=== PATIENT | female | born 1950 | race Caucasian/White ===

== ENCOUNTER 2023-09-20 23:29 | Observation (INO) | payer MEDICARE, OTHER, SELFPAY ==
[2023-09-20 23:29] VITALS: BP 150/96; PULSE 87; RESP 18; TEMP 36.8; O2SAT 95; BMI 25.3
--- NOTE | 2023-09-20 23:30 | HMH.EDGENADL ---
Discharge Plan Disposition Patient Disposition: Home, Self-Care Clinical Impressions Clinical Impression: Fracture, patella Discharge ED Provider: Black Thomas Adult HPI General Chief complaint: Fall Stated complaint: Fall Time Seen by Provider: 09/20/23 23:30 History of Present Illness HPI narrative: 72-year-old female presents for focal left knee pain after a fall from standing. She tripped on her cat's cardboard box and fell directly onto a concrete floor. She denies any other pain or injury besides the left knee. Any numbness or tingling. Related Data Allergies Allergy/AdvReac Type Severity Reaction Status Date / Time No Known Allergies Allergy Verified 09/21/23 01:54 [facility] Disclaimer: The information contained in this section may have been updated after the patient was seen, as this information can be updated by other users. Social History Smoking Status: Former smoker alcohol intake: never current occupational status: retired Travel in the last 8 weeks: None ROS Obtained: Yes All systems reviewed & no additional complaints except as documented Physical Exam General General appearance: alert and in no apparent distress Head Head exam: atraumatic and normocephalic Eye Eye exam: Present normal appearance, PERRL and EOMI ENT ENT exam: Present normal oropharynx and normal external ear exam Neck Neck exam: Present normal inspection and full ROM Chest Chest inspection: Present normal inspection and symmetric chest wall rise; Absent tenderness Respiratory Respiratory exam: Present normal lung sounds bilaterally; Absent respiratory distress Cardiovascular Cardiovascular exam: Present regular rate and normal rhythm Abdominal Exam Abdominal exam: Present soft; Absent distention, tenderness or guarding Extremities Exam Extremities exam: Present other (Focal left knee hematoma and swelling. Patient unable to straighten left lower leg against gravity. Otherwise normal extremity exam. No pelvic tenderness.) Back Exam Back exam: Present normal inspection; Absent tenderness Neurological Exam Neurological exam: Present alert and oriented X3; Absent motor sensory deficit Psychiatric Psychiatric exam: Present normal affect and normal mood Skin Skin exam: Present warm, dry and normal color Lymphatic Lymphatic Findings: no adenopathy Medical Decision Making Medical Records Medical records reviewed: Yes I reviewed the patient's medical records. Reginaldo Inquiry Pt receiving controlled substance: No Reginaldo was queried for this patient: No Vital Signs: 09/20/23 23:29 Temperature 98.2 F Temperature Source Oral Pulse Rate [Right] 87 Respiratory Rate 18 Blood Pressure [Right Arm] 150/96 H Blood Pressure Mean [Right Arm] 114 Blood Pressure Source [Right Arm] Automatic Cuff 02 Sat by Pulse Oximetry 95 Oxygen Delivery Method Room Air Lab Data Lab results reviewed: Yes I reviewed the patient's lab results. Orders (Tests/Meds): ORDERS Category Date Time Status Knee XR left 3 views [XR knee LT 3V] Stat Exams 09/20/23 23:48 Completed Medical Decision Narrative: 72-year-old female with history of fatty liver, cardiovascular disease, etc. presents for focal left knee pain after a mechanical fall from standing onto her left knee. History was obtained via interactive discussion with patient. On arrival, patient is [afebrile, hemodynamically stable, satting appropriately, alert, oriented x4, GCS 15], moving all extremities spontaneously. Full physical exam performed and significant for focal left knee Tenderness and swelling. Differential includes but is not limited to fracture, dislocation, neurovascular/ligamentous/tendon injury.. Patient declines any pain medication. Workup initiated including radiographs of the left knee and patella.. On re-evaluation, patient [remains afebrile, HD stable.] Imaging independently interpreted by me and significant for comminuted displaced patellar fracture. No evidence of tibial plateau fracture or knee dislocation. See radiology read for full review of final results. Given patient history, exam and workup, patient's presentation most likely represents acute displaced patellar fracture. This will require operative fixation but not emergently. We placed patient in a knee immobilizer and attempted to ambulate, but she was unable to safely do so. She lives at home alone and does not have any assistance at this time. Given this, patient requires admission for PT OT and potential rehab placement given immobility in the setting of acute fracture. She will require outpatient orthopedic surgery follow-up upon discharge. Procedures Risk/Benefits of Procedure(s) Were Explained: Yes Critical Care Critical Care Time Critical Care Time: No
--- NOTE | 2023-09-20 23:48 | XR_ITS ---
PROCEDURE INFORMATION: Exam: XR Left Knee Exam date and time: 09/20/2023 11:48 PM Age: 72 years old Clinical indication: Injury or trauma; Fall; Fracture, traumatic and swelling (edema); Left; Displaced; Patella or knee; Additional info: Fall, left knee pain TECHNIQUE: Imaging protocol: Radiologic exam of the left knee. Views: 3 views. Total images: 3 COMPARISON: No relevant prior studies available. FINDINGS: Bones/joints: Acute comminuted patellar fracture. The superior and lower pole are distracted approximately 16 mm. Associated joint effusion/hemarthrosis. Osteopenia. Mild degenerative change tibiofemoral joint. No concerning bone lesions. Soft tissues: Prepatellar soft tissue swelling. IMPRESSION: Acute comminuted and distracted patellar fracture.
[2023-09-21] VITALS (7 sets, daily range): BP systolic 101–154; BP diastolic 62–86; PULSE 80–94; RESP 16–18; TEMP 36.6–37.2; O2SAT 90–97; BMI 25.4; BMI 56.0
--- NOTE | 2023-09-21 01:55 | PC.NURSE ---
called warehouse handler and notified of admission. pt being admitted for immobility to hospitalist.
--- NOTE | 2023-09-21 02:15 | PC.NURSE ---
report called to Angie CAMPOS
--- NOTE | 2023-09-21 02:38 | EXP.HP ---
History of Present Illness *Admission Date: 09/21/23 *Reason for visit:: L knee pain *History of present illness: Eulogio is a 72-year-old female past medical history significant for hypothyroid, HLD, CAD, fatty liver who presents emergency room tonight with complaints of a mechanical fall onto her left knee. Patient states that she lives in assisted living facility. Was going into her room tonight and unfortunately tripped over a cardboard box. Fell onto a concrete floor onto her left knee and had immediate severe pain to the knee. Denies any LOC, did not strike her head, no neck or back pain. Denies any other issues. Actually just returned from [place] today to have an MRI done of her liver. Denies any cough, fever, chest pain, shortness of breath, abdominal pain, bowel bladder dysfunction. No swelling of legs or feet. No focal neurodeficits noted. Does not take any blood thinners. Denies any tobacco use, alcohol use, illicit drug use. Workup in the ER showed Acute comminuted and distracted left patellar fracture. Patient was unable to ambulate with crutches safely and was deemed to be a significant fall risk. Daughter lives in [place], was unable to come assist her mother home, patient has no other family to assist her at her assisted living facility. Lab work will be drawn upstairs. She will go to the hospital service for a left patella fracture. [facility] Disclaimer: The information contained in this section may have been updated after the patient was seen, as this information can be updated by other users. Medical History (Updated 09/21/23 @ 03:52 by Angie Doran RN) Cataract Sleep apnea Osteoporosis Constipation IBS (irritable bowel syndrome) Breast cancer Surgical History (Updated 09/21/23 @ 03:37 by Angie Doran RN) History of lumpectomy of left breast H/O total hysterectomy Family History (Updated 09/21/23 @ 03:41 by Angie Doran RN) Father Cancer Mother Alzheimer dementia Social History (Updated 09/21/23 @ 03:58 by Angie Doran RN) Smoking Status: Former smoker alcohol intake: never current occupational status: retired Travel in the last 8 weeks: None Review of Systems Review of Systems Review of systems:: pertinent systems reviewed and negative unless documented below *Musculoskeletal Comments: Left knee pain Meds Home Medications and Allergies Home Medications Medication Instructions Recorded Confirmed Type calcium carb,calcium gluconate 500 1 tab PO DAILY 09/21/23 09/21/23 History mg-vit D2 5 mcg (200 unit) tablet calcium polycarbophil 625 mg tablet 312.5 mg PO DAILY 09/21/23 09/21/23 History ezetimibe 10 mg tablet 10 mg PO DAILY 09/21/23 09/21/23 History levothyroxine 50 mcg tablet 50 mcg PO DAILY 09/21/23 09/21/23 History omega-3 acid ethyl esters 1 gram 1 g PO BID 09/21/23 09/21/23 History capsule omeprazole 20 mg capsule,delayed 20 mg PO DAILY 09/21/23 09/21/23 History release paroxetine HCl 20 mg tablet 20 mg PO DAILY 09/21/23 09/21/23 History polyethylene glycol 1 ea miscellaneous DAILY 09/21/23 09/21/23 History New Prescriptions to Start Prescriptions: Allergies Allergy/AdvReac Type Severity Reaction Status Date / Time No Known Allergies Allergy Verified 09/21/23 01:54 Exam Data for Last 24 hours Vital signs and Labs for Last 24 Hours: Temp Pulse Resp BP Pulse Ox O2 Del Method 98.2 F 80 18 130/80 95 Room Air 09/21/23 02:31 09/21/23 02:31 09/21/23 02:31 09/21/23 02:31 09/20/23 23:29 09/21/23 02:31 I & O for Last 24 hours: Intake & Output 09/18/23 09/19/23 09/20/23 09/21/23 23:59 23:59 23:59 23:59 Weight 60.781 kg *Routine HEENT Exam Head: Present normocephalic and atraumatic Eye: Present EOMI and PERRL ENT: Present mucous membranes moist *Routine Neck Exam Neck: Present supple *Routine Respiratory Exam Respiratory: Present CTA bilaterally *Routine Cardiovascular Exam Cardiovascular: Present RRR, Normal S1 and Normal S2 *Routine Abdominal Exam Abdominal: Present soft and normoactive bowel sounds *Routine Rectal Exam Rectal:: deferred *Routine Genitalia Exam Genitalia:: deferred *Routine Extremities Exam Extremities: Present pulses intact and normal capillary refill Comments: Brace noted on left knee, mild edema noted *Routine Skin Exam Skin: Present intact *Routine Neurological Exam Neurological: Present alert and oriented X3 Assessment and Plan *Assessment and plan (1) Hypothyroid: Status: Acute Category: Medical Code(s): E03.9 - Hypothyroidism, unspecified (2) Fracture, patella: Status: Acute Qualifiers: Encounter type: initial encounter Fracture alignment: displaced Fracture type: closed Laterality: right Category: Medical Code(s): S82.009A - Unspecified fracture of unspecified patella, initial encounter for closed fracture (3) HLD (hyperlipidemia): Status: Acute Category: Medical Code(s): E78.5 - Hyperlipidemia, unspecified (4) Fatty liver disease, nonalcoholic: Status: Acute Category: Medical Code(s): K76.0 - Fatty (change of) liver, not elsewhere classified (5) CAD (coronary artery disease): Status: Acute Category: Medical Code(s): I25.10 - Atherosclerotic heart disease of [place] coronary artery without angina pectoris Plan Assessment: This is a 72-year-old female being admitted for a left patella fracture and inability to complete activities of daily eating. On my exam, patient is lying in bed in no acute distress. Reports her knee pain is a 2/10. Plan: Admit to observation-MedSurg Patella fracture -Consult PT, patient had extreme difficulty ambulating with crutches and was a significant fall risk -Pain management as needed -Continue knee brace -Follow-up with orthopedic surgery outpatient HLD -Resume home medications where appropriate Hypothyroid -Continue Synthroid 50 mcg daily DVT prophylaxis: Lovenox CODE STATUS: Full code Surrogate decision maker: Daughter, number unlisted Skin: Low risk Rounded on patient after nurse practitioner. Personally examined and interviewed patient. Agree with exam findings and care plan as documented. Will obtain CT of need to evaluate displacement of patella and extent of ligament injury. Will consider orthopedics consult in the morning pending findings. May need surgical correction. Continue pain control With oxycodone as needed every 6 hours and Toradol every 6 hours.
--- NOTE | 2023-09-21 02:40 | PC.NURSE ---
Patient arrived to floor via stretcher from ED at 02:26.
[2023-09-21 03:19] LABS: Chloride 105 mmol/L (98-107)
[2023-09-21 03:20] LABS: Basophils # 0.1 K/mm3 (0-0.2); Basophils % 0.8 % (0.1-2.0); Eosinophils # 0.1 K/mm3 (0.0-0.4); Eosinophils % 0.9 % (0.1-12.0); Hemoglobin 13.3 g/dL (12.2-16.2); Lymphocytes # 2.6 K/mm3 (0.7-4.5); Lymphocytes % 23.2 % (10-50); Mean Corpuscular HGB Conc 34.2 g/dL (31.8-35.4); Mean Corpuscular Hemoglobin 28.6 pg (27.0-31.2); Mean Corpuscular Volume 83.8 fl (81-99); Mean Platelet Volume 8.3 fl (7.4-10.4); Monocytes # 0.5 K/mm3 (0.1-1.0); Monocytes % 4.8 % (1.7-9.3); Neutrophils # 7.9 K/mm3 (1.8-7.8); Neutrophils % 70.3 % (37.0-80.0); Platelet Count 282 K/mm3 (142-424); Potassium 3.8 mmoL/L (3.5-5.1); Red Blood Count 4.65 M/mm3 (4.20-5.40); Sodium 138 mmol/L (136-145); White Blood Count 11.2 K/mm3 (4.8-10.8)
[2023-09-21 03:22] LABS: Blood Urea Nitrogen 17 mg/dl (7-17); Creatinine Clearance Estimated 48 mL/min (50-200); Estimated Glomerular Filt Rate 98 ml/min (>60); GFR (African American) 118 ML/MIN (>60)
[2023-09-21 03:23] LABS: Anion Gap 13.8 mEq/L (5-15); Calcium 9.2 mg/dl (8.4-10.2); Carbon Dioxide 23 mmol/L (22.0-30.0); Glucose 111 mg/dl (74-100)
[2023-09-21] MEDS: SENNOSIDES 8.6MG/DOCUSATE 50MG TABLET 2 TAB PO (05:12)
--- NOTE | 2023-09-21 05:20 | PC.NURSE ---
Addendum entered by Angie Doran RN 09/21/23 05:47: Alert and oriented x4. Original Note: Ms De Luna was newly admitted last night for a fractured patella due to tripping over her cat's cardboard box at home with a direct hit of the left knee to her linoleum floor. Patient has not complained of any pain from her knee this shift other than upon moving her leg; she describes it as numb and has ice packs on it. The knee has significant swelling with a light bluish tint to her knee cap upon assessment. Her lung sounds are clear and bowel sounds were active in all quadrants upon auscultation this shift. S1/S2 heart sounds were heard. She has been tolerating room air well with O2 sats in high 90s. A new 20G IV was inserted into her right forearm. Patient is currently bedridden. She has a purewick in place and it is functioning. Patient has only had a sip of ice water tonight. Med rec has been completed this shift. Nicholas FOFANA has been notified of her status this shift, as well as her DNR/DNI wishes; DNR form has been signed by patient and witnessed by me this shift. Patient is currently resting supine in bed at this time. She does not have any further complaints. Call light is within reach.
--- NOTE | 2023-09-21 17:40 | PC.NURSE ---
Pt A&Ox4. Admitted with a left patella fracture, it is swollen and bruised. Pt wearing immobolizer while transferring to bedside commode. Pt has rated her pain 2/10 today and only has asked for ice packs to help with the pain. Pt wishes to only use her home medications which were brought in this evening by her daughter and are in the omni until they can be labeled by pharmacy. Pt resting in bed comfortably with no complaints at this time.
[2023-09-22 04:00] VITALS: BP 105/63; PULSE 77; RESP 16; TEMP 36.4; O2SAT 94; BMI 26.9
--- NOTE | 2023-09-22 05:19 | PC.NURSE ---
Patient is alert and oriented x4. Patient has had family visit her once this shift. Her lung sounds were clear and her bowel sounds were very active upon auscultation. She tolerates room air well. Patient stated that she had a couple bowel movements yesterday during the previous shift, and had been using the bedside commode to do so. Patient's purewick is still in place and functioning at this time. Upon inspection earlier this shift, the patient's affected knee (left) has a subtle purple tint to the knee cap, and swelling has decreased. Patient continues to report only mild pain, especially during movement of her left leg; she stated that it felt less sore. She has not asked for any pain medication this shift. Patient requested to lay on her right side in order for her to get better rest this shift; patient's request was fulfilled by assisting her onto her right side, placing an abductor pillow between her legs, and placing a pillow underneath her side. Patient also requested to have synthroid and protonix medication times changed this shift; patient's request was advocated for, Nicholas FOFANA was notified [id number], and times were changed to accommodate the patient. Patient is currently resting well in bed at this time. She does not have any further complaints, other than finding care for her cat while she is at the hospital. Patient's home medications are still waiting to be labeled by pharmacy. Call light is within reach.
[2023-09-22] MEDS: LEVOTHYROXINE 50MCG (0.05MG) TAB 50 MCG PO (05:50)
[2023-09-22 06:32] LABS: Basophils # 0.1 K/mm3 (0-0.2); Basophils % 0.7 % (0.1-2.0); Eosinophils # 0.2 K/mm3 (0.0-0.4); Eosinophils % 1.6 % (0.1-12.0); Hematocrit 37.9 % (37.0-47.0); Hemoglobin 12.6 g/dL (12.2-16.2); Lymphocytes # 3.3 K/mm3 (0.7-4.5); Lymphocytes % 32.5 % (10-50); Mean Corpuscular HGB Conc 33.3 g/dL (31.8-35.4); Mean Corpuscular Hemoglobin 29.1 pg (27.0-31.2); Mean Corpuscular Volume 87.5 fl (81-99); Mean Platelet Volume 8.7 fl (7.4-10.4); Monocytes # 0.7 K/mm3 (0.1-1.0); Neutrophils # 5.8 K/mm3 (1.8-7.8); Neutrophils % 58.2 % (37.0-80.0); Platelet Count 273 K/mm3 (142-424); Red Blood Count 4.33 M/mm3 (4.20-5.40); Red Cell Distribution Width 13.8 % (11.5-17.5)
[2023-09-22 06:38] LABS: Chloride 109 mmol/L (98-107); Sodium 140 mmol/L (136-145)
[2023-09-22 06:39] LABS: Potassium 3.7 mmoL/L (3.5-5.1)
[2023-09-22] MEDS: PANTOPRAZOLE 40MG TABLET 40 MG PO (06:39)
[2023-09-22 06:41] LABS: Alanine Aminotransferase 37 U/L (12-78); Albumin Level 3.7 g/dl (3.5-5.0); Albumin/Globulin Ratio 1.2 (1.1-1.8); Alkaline Phosphatase 56 U/L (38-126); Anion Gap 11.7 mEq/L (5-15); Aspartate Amino Transferase 39 U/L (14-36); Bilirubin,Total 0.5 mg/dl (0.2-1.3); Blood Urea Nitrogen 15 mg/dl (7-17); Carbon Dioxide 23 mmol/L (22.0-30.0); Creatinine Clearance Estimated 50 mL/min (50-200); Estimated Glomerular Filt Rate 82 ml/min (>60); GFR (African American) 99 ML/MIN (>60); Globulin 3.1 g/dL (1.3-3.2); Glucose 105 mg/dl (74-100); Total Protein,Serum 6.8 g/dl (6.3-8.2)
[2023-09-22 08:00] VITALS: BP 99/52; PULSE 73; RESP 18; TEMP 36.6; O2SAT 93
--- NOTE | 2023-09-22 09:43 | SW/DCPLANNER ---
Addendum entered by Ansley Burns 09/22/23 15:11: Krystin rivera/ [facility] stated that services will start this week. Original Note: I spoke w/ patient regarding plans once medically stable for discharge. PT evaluated patient and recommended home health services. Patient is agreeable to home health at time of discharge and prefers to use [facility]. I will fax patient information/order once patient is medically stable for discharge. Patient also requested a rolling walker from [facility] at time of discharge. Patient will discharge home this afternoon.
--- NOTE | 2023-09-22 09:49 | HMH.OTEV ---
OT Inpatient Evaluation Rehab OT IP Evaluation Start: 09/21/23 07:50 Freq: ONCE Status: Active Protocol: Document 09/22/23 09:42 [facility] (Rec: 09/22/23 09:49 [facility] [id number]) Rehab OT IP Assessment Subjective History Pt oriented x 3 on arrival. Pt agreeable to engage in therapy evaluation. Pt admitted on 09/21/23 due L knee pain and a L patella fx. History and physical report: Eulogio is a 72-year-old female past medical history significant for hypothyroid, HLD, CAD, fatty liver who presents emergency room tonight with complaints of a mechanical fall onto her left knee. Patient states that she lives in assisted living facility. Was going into her room tonight and unfortunately tripped over a cardboard box. Fell onto a concrete floor onto her left knee and had immediate severe pain to the knee. Denies any LOC, did not strike her head, no neck or back pain. Denies any other issues. Actually just returned from [place] today to have an MRI done of her liver. Denies any cough, fever, chest pain, shortness of breath, abdominal pain, bowel bladder dysfunction. No swelling of legs or feet. No focal neurodeficits noted. Does not take any blood thinners. Denies any tobacco use, alcohol use, illicit drug use. Subjective I lived by myself. Prior to being in the hospital , pt lived alone. Pt claims normally she is independent with all ADLs and IADLs. She does not require any type of AE during functional mobility tasks. Pt also still drove. Objective Patient Orientation Person,Place,Birthday Right Upper Extremity Gross ROM WFL Left Upper Extremity Gross ROM WFL Bed Mobility bed mobility-scooting,bed mobility - supine/sit Assist Level Minimal x 1 (25% assist) Transfer Training Sit/Stand Transfer Assist Level Minimal x 1 (25% assist) Rehab OT IP prob,goals,plan Problems Date of Evaluation: 09/22/23 OT IP Problems Bed Mobility,Transfers,Balance ,Self care,Safety Rehab Potential Rehab Potential Good Equipment Needs Assistive Devices Rolling / Wheeled Walker Plan OT intervention Plan Bed Mobility,Transfers,Balance ,Self care,Safety,Therapeutic Exercise OT Plan Frequency Daily Duration LOS Discharge Goals Bed Mobility Ability Standby Assistance Sit to Stand Chair Transfer Ability Supervision/Stand by,Contact Guard/Hand Hold Chair Transfer Ability Supervision/Stand by,Contact Guard/Hand Hold Chair Transfer Technique Sit to/from Ambulatory Chair Transfer Assistive Devices Rolling Walker Lower Body Dressing Ability Minimal Assistance Upper Body Dressing Ability Standby Assistance Bathing Ability Minimal Assistance Performing Toilet Hygiene Ability Contact Guard Overall Commode/Toilet Transfer Ability Standby Assistance Commode/Toilet Transfer Technique Sit to/from Ambulatory Commode/Toilet Transfer Assistive Grab Bars Devices Oral Care Assist Standby Assistance Decrease in Endurance No Discharge Plan OT Discharge Plan Pt will continue to be seen for OT services while at [facility]. Pt can return home once she is medically stable per physician. Pt reports her family can assist intermittently when needed. Therapist also recommends OT evaluation in order to continue addressing functional independence. Therapist also recommends a BSC and rolling walker upon returning home to increase independence. Continued skilled therapy is important in order for patient to improve strength, safety, endurance, ADL independence, and functional transfers to reach PLOF. Eval Complexity Eval Charge Codes 43383 - Moderate Complexity PHYSICIAN CERTIFICATION: I certify the specified therapy services for Loretta De Luna are required, authorized, and reviewed every 30 days.
--- NOTE | 2023-09-22 09:56 | HMH.PTEV ---
Physical Therapy Evaluation Rehab PT IP Evaluation Start: 09/21/23 02:28 Freq: ONCE Status: Active Protocol: Document 09/22/23 09:42 [facility] (Rec: 09/22/23 09:56 [facility] [id number]) Subjective/History History History Patient Loretta De Luna is a 72 yof who was admitted on patient fell on concrete floor due to tripping and had imaging done resulting in acute comminuted and distracted left patellar fracture. Patient lives at an half-way facility at this time and her daughter lives near by. Her past medical history significant for hypothyroid, HLD, CAD, fatty liver. Before injury patient was able to complete functional tasks and ambulate without any AD. She does not have any stairs into or within her home. Subjective Subjective Patient is experiencing some discomfort at this time, mainly if her leg is bent. She mentioned that last night the pain woke up her during the night but has been getting a little better. New diagnosis of cancer in past 12 No months? Rehab PT IP Eval Objective Appearance Patient Behavior Appropriate,Cooperative Patient Orientation Person,Place,Name,Age,Birthday Speech Pattern Clear,Appropriate Ambulation Patient Able to Ambulate Yes Ambulation Observation IP General Gait Pattern Observation Antalgic Gait,Decrease Weight Bear (L) Ambulation Assistive Device Rolling Walker Ambulation Ability Minimal x 1 (25% assist) Balance Ability to Arise Able, uses arms to help Sitting Balance Leans or slides in chair Standing Balance Unsteady Dynamic Sitting Balance Ability Good Dynamic Standing Balance Ability Good Transfers Bed Transfer Ability Minimal x 1 (25% assist) Sit to Stand Bed Transfer Ability Minimal x 1 (25% assist) Rehab PT IP prob,goals,plan Problems Date of Evaluation: 09/22/23 PT IP Problems Transfers,Gait,Balance Rehab Potential Rehab Potential Good Equipment Needs Assistive Devices Rolling / Wheeled Walker Plan PT Intervention Plan Transfers,Gait,Balance PT Plan Frequency Daily Duration LOS Discharge Goals Bed Transfer Ability Independent Sit to Stand Chair Transfer Ability Independent Ambulation Assistive Device Rolling Walker Ambulation Distance (feet) 25 Discharge Plan PT Discharge Plan Patient is a good candidate at this time for skilled PT with the recommendation of home health to further address concerns with ambulation safety and transfers. She would significantly benefit to address limitations with L knee AROM to improve ambulation and QOL. Eval Complexity Eval Charge Codes 35418 - High Complexity PHYSICIAN CERTIFICATION: I certify the specified therapy services for Loretta De Luna are required, authorized, and reviewed every 30 days.
--- NOTE | 2023-09-22 11:00 | P.DS_ITS ---
General Admission date:: 09/21/23 Discharge date: 09/22/23 HPI HPI HPI: Loretta is a 72-year-old female past medical history significant for hypothyroid, HLD, CAD, fatty liver who presents emergency room tonight with complaints of a mechanical fall onto her left knee. Patient states that she lives in assisted living facility. Was going into her room tonight and unfortunately tripped over a cardboard box. Fell onto a concrete floor onto her left knee and had immediate severe pain to the knee. Denies any LOC, did not strike her head, no neck or back pain. Denies any other issues. Actually just returned from [place] today to have an MRI done of her liver. Denies any cough, fever, chest pain, shortness of breath, abdominal pain, bowel bladder dysfunction. No swelling of legs or feet. No focal neurodeficits noted. Does not take any blood thinners. Denies any tobacco use, alcohol use, illicit drug use. Workup in the ER showed Acute comminuted and distracted left patellar fracture. Patient was unable to ambulate with crutches safely and was deemed to be a significant fall risk. Daughter lives in [place], was unable to come assist her mother home, patient has no other family to assist her at her assisted living facility. Lab work will be drawn upstairs. She will go to the hospital service for a left patella fracture. Hospital Course Hospital Course Hospital Course: 72-year-old female being admitted for a left patella fracture and inability to complete activities of daily eating. On my exam, patient is lying in bed in no acute distress. Reports her knee pain is a 2/10. Admitted to medicine for further management. Therapy evaluated. Will place patient in immobilizing hinged brace. She is able to bear weight. Stable to discharge home with rolling walker. Will have close follow-up as an outpatient with orthopedic surgery. Will need surgical fixation after swelling improves. No emergency surgical intervention at this time. Problems addressed as follows: Patella fracture -Imaging showing displaced patellar fracture per my review on x-ray. Discussed case with orthopedic surgery, recommend outpatient follow-up. Therapy evaluated, patient able to bear weight with leg immobilized. Will use rolling walker and refer to home health. Continue pain control at discharge. Hinged immobilizer brace placed on day of discharge. Patient stable to discharge home with further management as an outpatient. HLD: Continue home Zetia 10 mg daily Hypothyroid: Continue Synthroid 50 mcg daily Extensive discussion with patient about plan, need for follow-up and surgical fixation. Patient states understanding. Short course of opiates prescribed at discharge for pain control. Discussed case with therapy on day of discharge, patient stable to discharge home with assistive devices. Able to ambulate in immobilizer and bear weight. Total time spent on discharge 32 minutes in counseling, documentation, chart review, and direct care with patient. Exam Data for Last 24 hours Vital signs and Labs for Last 24 Hours: Temp Pulse Resp BP Pulse Ox O2 Del Method 97.9 F 73 18 99/52 L 93 L Room Air 09/22/23 08:00 09/22/23 08:00 09/22/23 08:00 09/22/23 08:00 09/22/23 08:00 09/22/23 10:06 Laboratory Results - last 24 hr 09/22/23 05:56: WBC 10.0, RBC 4.33, Hgb 12.6, Hct 37.9, MCV 87.5, MCH 29.1, MCHC 33.3, RDW 13.8, Plt Count 273, MPV 8.7, Neut % (Auto) 58.2, Lymph % (Auto) 32.5, [place] % (Auto) 7.0, Eos % (Auto) 1.6, Baso % (Auto) 0.7, Neut # (Auto) 5.8, Lymph # (Auto) 3.3, [place] # (Auto) 0.7, Eos # (Auto) 0.2, Baso # (Auto) 0.1, Sodium 140, Potassium 3.7, Chloride 109 H, Carbon Dioxide 23, Anion Gap 11.7, BUN 15, Creatinine 0.70, Estimated Creat Clear 50, Estimated GFR 82, Est GFR ( Amer) 99, Glucose 105 H, Calcium 9.0, Magnesium 2.0, Total Bilirubin 0.5, AST 39 H, ALT 37, Alkaline Phosphatase 56, Total Protein 6.8, Albumin 3.7, Globulin 3.1, Albumin/Globulin Ratio 1.2 I & O for Last 24 hours: Intake & Output 09/19/23 09/20/23 09/21/23 09/22/23 23:59 23:59 23:59 23:59 Intake Total 940 / 1040 580 / 580 Output Total 0 / 0 150 / 150 Balance 940 / 1040 430 / 430 Weight 60.781 kg 134.5 kg 64.637 kg Constitutional Constitutional: no acute distress, average body habitus and cooperative *Routine HEENT Exam Head: Present normocephalic Eye: Present EOMI and PERRL ENT: Present mucous membranes moist *Routine Neck Exam Neck: Present supple; Absent lymphadenopathy *Routine Respiratory Exam Respiratory: Present CTA bilaterally; Absent respiratory distress, rhonchi, wheezes or crackles *Routine Cardiovascular Exam Cardiovascular: Present RRR *Routine Abdominal Exam Abdominal: Present soft and normoactive bowel sounds; Absent tenderness *Routine Rectal Exam Patient deferred: visual exam *Routine Exam Patient deferred: external exam *Routine Extremities Exam Extremities: Absent cyanosis, clubbing or edema Comments: Bruising over left patella, improvement in edema. Tender to palpation with leg movement. *Routine Skin Exam Skin: Present warm; Absent rash *Routine Neurological Exam Neurological: Present alert, oriented X3 and moving all extremities; Absent altered mental status Results Data Completed and Pending Labs on day of discharge: Labs from last 24 hours 09/22/23 05:56 WBC 10.0 RBC 4.33 Hgb 12.6 Hct 37.9 MCV 87.5 MCH 29.1 MCHC 33.3 RDW 13.8 Plt Count 273 MPV 8.7 Neut % (Auto) 58.2 Lymph % (Auto) 32.5 [place] % (Auto) 7.0 Eos % (Auto) 1.6 Baso % (Auto) 0.7 Neut # (Auto) 5.8 Lymph # (Auto) 3.3 [place] # (Auto) 0.7 Eos # (Auto) 0.2 Baso # (Auto) 0.1 Sodium 140 Potassium 3.7 Chloride 109 H Carbon Dioxide 23 Anion Gap 11.7 BUN 15 Creatinine 0.70 Estimated Creat Clear 50 Estimated GFR 82 Est GFR ( Amer) 99 Glucose 105 H Calcium 9.0 Magnesium 2.0 Total Bilirubin 0.5 AST 39 H ALT 37 Alkaline Phosphatase 56 Total Protein 6.8 Albumin 3.7 Globulin 3.1 Albumin/Globulin Ratio 1.2 DS: Diagnosis Discharge Diagnosis (1) Hypothyroid: Status: Acute Code(s): E03.9 - Hypothyroidism, unspecified (2) Fracture, patella: Status: Acute Code(s): S82.009A - Unspecified fracture of unspecified patella, initial encounter for closed fracture Qualifiers: Encounter type: initial encounter Fracture alignment: displaced Fracture type: closed Laterality: right (3) HLD (hyperlipidemia): Status: Acute Code(s): E78.5 - Hyperlipidemia, unspecified (4) Fatty liver disease, nonalcoholic: Status: Acute Code(s): K76.0 - Fatty (change of) liver, not elsewhere classified (5) CAD (coronary artery disease): Status: Acute Code(s): I25.10 - Atherosclerotic heart disease of [place] coronary artery without angina pectoris Meds Home Medications and Allergies Home Medications ?Medication ?Instructions ?Recorded ?Confirmed ?Type calcium carb,calcium gluconate 500 1 tab PO DAILY 09/21/23 09/21/23 History mg-vit D2 5 mcg (200 unit) tablet calcium polycarbophil 625 mg tablet 312.5 mg PO DAILY 09/21/23 09/21/23 History ezetimibe 10 mg tablet 10 mg PO DAILY 09/21/23 09/21/23 History levothyroxine 50 mcg tablet 50 mcg PO 0530 09/21/23 09/22/23 History omega-3 acid ethyl esters 1 gram 1 g PO BID 09/21/23 09/21/23 History capsule omeprazole 20 mg capsule,delayed [place] [address]/21/23 09/22/23 History release paroxetine HCl 20 mg tablet 20 mg PO DAILY 09/21/23 09/21/23 History polyethylene glycol 1 ea miscellaneous DAILY 09/21/23 09/21/23 History oxycodone-acetaminophen 5 mg-325 1 tab PO Q6HP PRN Moderate To 09/22/23 Rx mg tablet Severe Pain (4-10) 3 days #12 tabs New Prescriptions to Start Prescriptions: oxycodone-acetaminophen Lucas Barros Allergies Allergy/AdvReac Type Severity Reaction Status Date / Time No Known Allergies Allergy Verified 09/21/23 01:54 Discharge Plan Disposition Patient Disposition: Home Health Service Condition: Fair Discharge Order Discharge Orders: Discharge Order (Routine); Ordered 09/22/23 Ordered By: Lucas Barros Follow up Plan Follow up with: Ascencion Blevins DO [Staff Physician] - 09/25/23 2:15 pm (within the week) Jorge Bangura PA [Referring] - 09/24/23 9:45 am Prescriptions/Medication Reconciliation: New oxycodone-acetaminophen 5-325 mg Tablet 1 tab PO Q6HP PRN (Reason: Moderate To Severe Pain (4-10)) 3 Days Qty: 12 0RF Continued levothyroxine 50 mcg tablet 50 mcg PO 0530 Patient Comments: TAKE 1 TABLET BY MOUTH DAILY paroxetine HCl 20 mg tablet 20 mg PO DAILY calcium polycarbophil 625 mg Tablet 312.5 mg PO DAILY Rx Instructions: Take with ClearLAX; separate medications, take two hours before or two hours after omeprazole 20 mg capsule,delayed release(DR/EC) 20 mg PO 0630 Patient Comments: TAKE 1 CAPSULE BY MOUTH EVERY MORNING 30 MINUTES PRIOR TO BREAKFAST Rx Instructions: Every morning 30 minutes before breakfast polyethylene glycol Powder 1 ea MISCELLANEOUS DAILY ezetimibe 10 mg tablet 10 mg PO DAILY Patient Comments: TAKE 1 TABLET BY MOUTH DAILY omega-3 acid ethyl esters 1 gram capsule 1 g PO BID calcium carb,glucon-vitamin D2 500 mg-5 mcg (200 unit) Tablet 1 tab PO DAILY Other Ambulatory Orders: Home Medical Equipment (Routine) Location: None Selected Ordered By: Lucas Barros Home Medical Equipment (Routine) Location: None Selected Ordered By: Lucas Barros Problem Reconciliation Problems Reviewed?: Yes Patient Discharge Instructions ACTIVITY: Continue current activity DIET: continue same diet Patient Instructions: DI for Patella Fracture Print Language: Nepali Providers Primary Care Provider: Provider,Referral Admit Provider: Lucas Barros Attending Provider: Lucas Barros
--- NOTE | 2023-09-24 13:00 | CARE MANAGER ---
Attempted to contact patient x2 related to hospital discharge. Unable to leave . BETH Ren
== END 2023-09-22 16:53 | disposition home health service (06) ==
LOC: ER 23:48 → 2ND 09-21 01:58
PROVIDERS: Nurse Practitioner Acute Care; Admitting Provider Internal Medicine Adolescent Medicine; Emergency Provider Emergency Medicine; Visit Provider Internal Medicine Adolescent Medicine
DX: W01.0XXA Fall on same level from slipping, tripping and stumbling without subsequent striking against object, initial encounter (principal); S82.042A Displaced comminuted fracture of left patella, initial encounter for closed fracture; Y92.098 Other place in other non-institutional residence as the place of occurrence of the external cause; E03.9 Hypothyroidism, unspecified; E78.5 Hyperlipidemia, unspecified; K76.0 Fatty (change of) liver, not elsewhere classified; I25.10 Atherosclerotic heart disease of native coronary artery without angina pectoris; Z79.899 Other long term (current) drug therapy
CPT/HCPCS: 36415; 73562; 80048; 80053; 83735; 85025; 97163; 97166; 97760; 99221; 99285; G0378

== ENCOUNTER 2024-01-20 14:00 | Outpatient (RCR) | payer MEDICARE, MEDICAID, SELFPAY | END 2024-01-20 23:59 | disposition home or self-care (01) | LOC: PT 14:00 | PROVIDERS: Visit Provider Student in an Organized Health Care Education/Training Program | DX: M25.562 Pain in left knee (principal); S82.092A Other fracture of left patella, initial encounter for closed fracture | CPT/HCPCS: 97016; 97110; 97163; 97530 ==

== ENCOUNTER 2025-01-17 11:54 | Outpatient (CLI) | payer MEDICARE, MEDICAID, SELFPAY ==
[2025-01-17 13:39] LABS: Albumin Level 4.2 g/dl (3.5-5.0); Anion Gap 11.9 mEq/L (5-15); Blood Urea Nitrogen 12 mg/dl (7-17); Calcium 9.4 mg/dl (8.4-10.2); Carbon Dioxide 26 mmol/L (22.0-30.0); Chloride 105 mmol/L (98-107); Creatinine,Serum 0.70 mg/dl (0.52-1.04); Estimated Glomerular Filt Rate 81 ml/min (>60); GFR (African American) 98 ML/MIN (>60); Glucose 105 mg/dl (74-100); Phosphorous 3.1 mg/dl (2.5-4.5); Potassium 3.9 mmoL/L (3.5-5.1); Sodium 139 mmol/L (136-145)
== END 2025-01-17 23:59 | disposition home or self-care (01) ==
PROVIDERS: PCP Student in an Organized Health Care Education/Training Program; Visit Provider Physician Assistant Medical
DX: M81.0 Age-related osteoporosis without current pathological fracture (principal)
CPT/HCPCS: 36415; 80069